=== PATIENT | male | born 1985 | race Two or more races ===

== ENCOUNTER 2017-03-12 12:48 | Emergency (ER) | payer MEDICAID, OTHER ==
[2017-03-12 13:02] VITALS: O2SAT 96
--- NOTE | 2017-03-12 13:59 | EDPHY ---
H & P Stated Complaint: INJ R ELBOW 2 DAYS AGO AT WORK P[employer]ING [employer]OX[employer] Time Seen by Provider: 03/12/17 13:59 HPI/ROS: HPI: This is a 31-year-old male presents Chief Complaint: INJ R ELBOW 2 DAYS AGO AT WORK PULLING BOXES Location: Right elbow Quality: Injury Duration: 2 days ago Signs and Symptoms: No bleeding, + radiation from the elbow up into shoulder, no numbness, no weakness, no tingling, no decreased range of motion, no swelling , + pain Timing: Sudden onset, worse with use Severity: Moderate Context: Patient reports that he is right-hand dominant, works at local [employer], and complains of right elbow pain that radiates up into his right bicep/shoulder with certain positions and use. He reports that 2 days ago he was pulling out a piece of metal from the machine when he got wedged between the metal and machine for a brief period of time. He denies any lacerations. Last night the pain was so unbearable he was unable to sleep on it. Was unable to go to work today. Denies any weakness, radiation, paresthesias. Modifying Factors: He has tried ibuprofen without relief Comment: ROS: see HPI Constitutional: No fever, no chills, no weight loss Eyes: No blurred vision Respiratory: No shortness of breath, no cough Cardiovascular: No chest pain Gastrointestinal: No nausea, no vomiting no diarrhea Genitourinary: No dysuria Extremities: No myalgias Neurologic: No weakness, no numbness Skin: No rashes Hematologic: No bruising, no bleeding MEDICAL/SURGICAL/SOCIAL HISTORY: Medical history: Generally healthy. Does not take any regular medications. Surgical history: Denies Social history: Employed CONSTITUTIONAL: Well-appearing adult white male, awake and alert, no obvious distress HEENT: Atraumatic and normocephalic, PERRL, EOMI. Tympanic membranes clear. Oropharynx clear, no exudate and moist pink mucosa. Airway patent. No lymphadenopathy. No meningismus. Cardiovascular: Normal S1/S2, regular rate, regular rhythm, without murmur rub or gallop. PULMONARY/CHEST: Symmetrical and nontender. Clear to auscultation bilaterally. Good air movement. No accessory muscle usage. ABDOMEN: Soft, nondistended, nontender, no rebound, no guarding, no peritoneal signs, no masses or organomegaly. No CVAT. EXTREMITIES: 2/2 radial pulses, strength 5/5, RIGHT SHOULDER: Arc test abduction to 180, abduction to 45, horizontal flexion 130, horizontal extension to 45, deltoid strength 5/5. No pain with Neer test/Baxter test ( impingement). No Tenderness to palpation over AC joint. RIGHT ELBOW: Full extension to 180, flexion to 150, no tenderness over medial epicondyle, no tenderness over lateral epicondyle, no effusion. no deformities, no clubbing, no cyanosis or edema. NEUROLOGICAL: no focal neuro deficits. GCS 15. SKIN: Warm and dry, multiple tattoos noted, no erythema. no rash. Good capillary refill. Source: Patient Exam Limitations: No limitations - Personal History Current Tetanus/Diphtheria Vaccine: No - Medical/Surgical History Hx Asthma: No Hx Chronic Respiratory Disease: No Hx Diabetes: No Hx Cardiac Disease: No Hx Renal Disease: No Hx Cirrhosis: No Hx Alcoholism: No Hx HIV/AIDS: No Hx Splenectomy or Spleen Trauma: No Other PMH: BACK PROBLEMS/APPY - Social History Smoking Status: Current every day smoker Constitutional: Initial Vital Signs Temperature (C) 36.8 C 03/12/17 12:58 Heart Rate 67 03/12/17 12:58 Respiratory Rate 17 03/12/17 12:58 Blood Pressure 125/94 H 03/12/17 12:58 O2 Sat (%) 96 03/12/17 12:58 O2 Delivery Mode Room Air Allergies/Adverse Reactions: No Known Allergies Allergy (Unverified 03/12/17 12:58) Home Medications: Medication Instructions Recorded Naproxen [Naprosyn] 500 mg PO BID PRN #12 tablet 03/12/17 Medical Decision Making - Diagnostics Imaging Results: Imaging Impressions Elbow X-Ray 03/12/17 14:06 Impression: Normal. RIGHT ELBOW, 3 Views, at 1:48 PM: There is no fracture, dislocation, elbow joint effusion, or radiopaque foreign body. Impression: Negative. Shoulder X-Ray 03/12/17 14:06 Impression: Normal. RIGHT ELBOW, 3 Views, at 1:48 PM: There is no fracture, dislocation, elbow joint effusion, or radiopaque foreign body. Impression: Negative. Procedures: Procedure: Splint placement. A sling was applied by the Emergency tension. After application of the splint I returned and re-examined the patient. The splint was adequately immobilizing the joint and distal to the splint the patient's circulation and sensation was intact. ED Course/Re-evaluation: Right shoulder x-ray, right elbow x-ray ordered No signs of impingement syndrome/epicondylitis/bursitis/effusion/internal derangement/bicep tear No signs of neurovascular compromise/tenting of skin/compartment syndrome/ extremities and joints examined above and below area of concern and are neurovascularly intact. Shoulder x-ray and elbow x-ray reviewed via PACs and shows no acute fracture, dislocation, degenerative changes. Advised rice therapy as appears to be muscle strain versus contusion Patient requesting sling and request off work 2 days Patient's presentation, labs/imaging, treatment and plan of care were reviewed with secondary supervising physician. Differential Diagnosis: Differential diagnosis includes but is not limited to contusion, rotator cuff injury, sprain, nerve injury. Departure - Departure Disposition: Home, Routine, Self-Care Clinical Impression: Injury of right elbow region Sprain of elbow Qualifiers: Encounter type: initial encounter Laterality: right Qualified Code(s): S53.401A - Unspecified sprain of right elbow, initial encounter Condition: Good Instructions: RICE Therapy (ED), Elbow Sprain (ED) Additional Instructions: Wear sling until pain free but not more than 1 week. Apply ice for 30 minutes at a time; 2-3 times per day for the next 1-2 days. Follow up with Occupational Therapy or Orthopedics in 7-10 days if symptoms persist or worsen. The x-rays obtained in the emergency department today demonstrate no evidence of an obvious fracture. Sometimes fractures are not obvious on the initial set of x-rays performed in the ED. For this reason, you should have repeat x-rays performed in 7-10 days if you are having any pain exclude the possibility of an occult fracture. Referrals: Lauri Baeza MD [Medical Doctor] - As per Instructions Stand Alone Forms: Work Excuse Prescriptions: Naproxen [Naprosyn] 500 mg PO BID PRN #12 tablet PRN Reason: Pain, Moderate
[2017-03-12 15:32] VITALS: BP 116/61; PULSE 68; RESP 14; TEMP 98.1
== END 2017-03-12 15:31 | disposition home or self-care (01) ==
DX: S53.401A Unspecified sprain of right elbow, initial encounter (principal); F17.200 Nicotine dependence, unspecified, uncomplicated; X50.9XXA Other and unspecified overexertion or strenuous movements or postures, initial encounter; Y92.69 Other specified industrial and construction area as the place of occurrence of the external cause; Y99.0 Civilian activity done for income or pay; Y93.89 Activity, other specified
CPT/HCPCS: A4565